=== PATIENT | male | born 1985 | race American Indian/Alaskan Native ===

== ENCOUNTER 2022-12-21 10:06 | Emergency (ER) | payer OTHER, SELFPAY ==
--- NOTE | 2022-12-21 10:13 | ED_ITS ---
HPI - Psych General Chief Complaint: Psychiatric Symptoms Stated Complaint: depressed Time Seen by Provider: 12/21/22 10:50 Source: patient Mode of arrival: ambulatory Limitations: no limitations History of Present Illness HPI Narrative: 37-year-old male presents with anxiety, depression, suicidal and homicidal red ation worsening of the past few days, patient reports polysubstance abuse has been using heroin and cocaine regularly however last use 2 days ago. Patient denies alcohol. Patient denies tobacco use disorder. Patient denies visual, auditory and tactile hallucinations. He tells me his plan for suicide is to cut himself. Also feeling homicidal however no particular plan. No medical complaints at this time. Reports med compliance Related Data Home Medications Medication Instructions Recorded Confirmed clonidine HCl 0.2 mg tablet 0.4 mg PO TID PRN Anxiety 12/21/22 12/21/22 nabumetone 750 mg tablet 750 mg PO BID 12/21/22 12/21/22 olanzapine 15 mg tablet 30 mg PO BEDTIME 12/21/22 12/21/22 trazodone 100 mg tablet 200 mg PO BEDTIME PRN Sleep 12/21/22 12/21/22 Allergies Allergy/AdvReac Type Severity Reaction Status Date / Time No Known Allergies Allergy Unverified 01/05/20 18:22 Review of Systems Review of Systems: Constitutional : No Weight loss, No Fever, No Chills, No Fatigue, No Malaise ENT/Mouth : No sore throat, No Rhinorrhea Eyes: No Eye Pain, No Swelling, No Redness Cardiovascular : No Chest Pain, No SOB, No Dyspnea on Exertion, No Orthopnea, No Edema, No Palpitations Respiratory : No Cough, No Sputum, No Wheezing Gastrointestinal : No Nausea, No Vomiting, No Diarrhea, No Constipation, No abdominal Pain, No Hematochezia, No Melena Genitourinary : No Dysuria, No Urinary Frequency, No Hematuria, Musculoskeletal : No joint pain, No Myalgias, No Joint Swelling Skin : No Skin Lesions, No rash Neuro : No Weakness, No Numbness, No Dizziness, No Headache Psych : + Anxiety/Panic, + Depression, + SI/HI All other systems reviewed and are negative Yes all other systems are reviewed and are negative [facility] Past Medical History Attestation statement: The following information was validated with the patient. Source: old records reviewed and nursing notes reviewed Social History Social History Alcohol intake: unknown Smoked in Last 30 Days: Yes Use of substances other than those prescribed or required for medical reasons: Unknown Advance Directives: No Advance Directives Information Provided: No Healthcare Proxy: No Guardian: No Physical Exam Vital Signs: Vital Signs: Last Vital Signs Temp 98.1 F 12/22/22 14:13 Pulse 56 12/22/22 14:13 Resp 18 12/22/22 14:13 BP 128/67 12/22/22 14:13 Pulse Ox 99 12/22/22 14:13 O2 Del Method Room Air 12/22/22 14:13 BMI result Body Mass Index 23.3 Vital signs stable Appearance: Alert.? Oriented X3.? No acute distress.? Head: Normocephalic, atraumatic, no step-offs or deformities Eyes: Pupils equal, round and reactive to light.? CVS: Normal heart rate and rhythm.? Pulses normal.? Respiratory: No respiratory distress.? Breath sounds normal.? Abdomen: Soft and nontender.? Skin: Skin warm and dry.? Normal skin color.? Normal skin turgor.? Extremities: No lower extremity edema.? No calf ttp. 5/5 strength to bilateral upper and lower extremities Neuro: Oriented X 3.? No motor deficit.? No sensory deficit. CN 2-12 intact Course Course Course Narrative: this is a rapid medical exam. deferred additional HPI, ROS, PE to primary provider. 37 y male w/ history of anxiety/depression here with complaints of anxiety/depression, SI/HI, has plan to cut his wrists Has a therapist/psychiatrist at [facility] Occasionally uses heroin/cocaine. Will obtain labs, SEGOVIA. Once medically cleared will need CARE team consult. VSS Reevaluation(s) Reevaluation #1: CBC appears to be within normal limits. Chemistry unremarkable no acute findings requiring intervention. UA clean without infection. Urine toxicology positive for opiates, fentanyl, cocaine, marijuana. Ethanol negative. Salicylates, acetaminophen negative. At this time patient to be placed into observation to allow more time to be evaluated by Behavioral Health Team. At time observation was started patient, cooperative no acute distress will continue to monitor. Time: 14:37 Reevaluation #2: vital signs stable, no event reported by the nurse overnight, bed searching is underway patient is a voluntary admission, continue with physician observation. Time: 07:23 Reevaluation #3: Patient wll go to [facility] Additional Reevaluation(s): 9899 Patient now requesting to leave not SI or HI. He no longer wants to go as inpatient psych. Dr. Mccabe aware according to care team Siri, Dr. Mccabe is recommending discharge if patient does not want to stay. I personally spoke to patient does says he will go to detox in [place] on [facility]. He states he just does not think an in-patient admission will help him. No si or hi at time of dc, patient denies hallucinations Medications Administered Generic Name Dose Route Start Last Admin Trade Name Freq PRN Reason Stop Dose Admin Clonidine HCl 0.4 mg 12/21/22 18:21 12/22/22 15:01 Clonidine Hcl 0.2 Mg Tablet PO 0.4 mg TID PRN Administration Anxiety Protocol Olanzapine 30 mg 12/21/22 21:00 12/21/22 20:31 Olanzapine 10 Mg Tablet PO 30 mg BEDTIME RUFINO Administration Trazodone HCl 200 mg 12/21/22 18:21 12/21/22 20:31 Trazodone Hcl 100 Mg Tablet PO 200 mg BEDTIME PRN Administration Sleep Discontinued Medications Generic Name Dose Route Start Last Admin Trade Name Freq PRN Reason Stop Dose Admin Diphenhydramine HCl 25 mg 12/21/22 22:58 12/21/22 23:08 Diphenhydramine Hcl 25 Mg Capsule PO 12/21/22 22:59 25 mg ONCE ONE Administration Melatonin 6 mg 12/22/22 01:02 12/22/22 01:06 Melatonin 3 Mg Tablet PO 12/22/22 01:03 6 mg ONCE ONE Administration Olanzapine 10 mg 12/21/22 11:20 12/21/22 11:26 Olanzapine 10 Mg Tablet PO 12/21/22 11:21 10 mg ONCE ONE Administration Medical Decision Making Medical Decision Making [facility] Narrative: 1437 37 year old male presents with depression, anxiety, suicidal and homicidal ideation x2 days Physical exam benign. Likely polysubstance abuse with suicidal and homicidal ideation. Unlikely metabolic derangements. Other differentials include bipolar disorder, schizop hrenia. Plan medical clearance evaluation by behavioral health team Differential Diagnosis Differential Diagnoses: The differential diagnosis associated with the presentation includes Likely polysubstance abuse with suicidal and homicidal ideation. Unlikely metabolic derangements. Other differentials include bipolar disorder, schizophrenia. Admission/Observation Consideration of admission/observation: Escalation of care including admission/observation considered possible Lab Data MDM Lab Attestation statement: I reviewed the patient's lab results. 12/21/22 11:16 12/21/22 11:16 Labs: Lab Results 12/21/22 12/21/22 12/21/22 Range/Units 11:16 11:16 11:16 WBC 5.0 (4.8-10.8) X10*3/uL RBC 4.81 (4.60-5.80) X10*6/uL Hgb 14.3 (14.0-18.0) g/dl Hct 42.2 (42.0-52.0) % MCV 87.7 (80.0-98.0) fL MCH 29.7 (27.0-33.0) pg MCHC 33.9 (31.0-36.0) g/dl RDW 13.0 (11.0-16.0) % Plt Count 183 (160-400) X10*3/uL MPV Not Reportable Immature Gran % (Auto) 0.2 (0.0-0.4) % Neut % (Auto) 69.3 (45-73) % Lymph % (Auto) 23.5 (20-40) % [place] % (Auto) 6.0 (2-11) % Eos % (Auto) 0.6 (0-4) % Baso % (Auto) 0.4 (0-2) % Lymph # (Auto) 1.2 (1.2-4.9) X10*3/uL [place] # (Auto) 0.3 (0.1-1.2) X10*3/uL Eos # (Auto) 0.0 (0.0-0.4) X10*3/uL Baso # (Auto) 0.0 (0.0-0.2) X10*3/uL Abs Immat Gran (auto) 0.01 (0.00-0.03) X10*3/uL Absolute Neuts (auto) 3.5 (2.0-8.3) x10*3/uL Absolute Nucleated RBC 0.000 (0.0-0.012) X10*3/uL Nucleated RBC % (auto) 0.0 (0.0-0.2) /100WBC Smear Tech's Comments VERIFIED Sodium 139 (135-145) mmol/L Potassium 3.9 (3.3-5.1) mmol/L Chloride 105 (96-108) mmol/L Carbon Dioxide 25 (22-29) mmol/L Anion Gap 13 (12-20) BUN 8 L (9-16) mg/dL Creatinine 0.80 (0.5-1.4) mg/dL Estim Creat Clear Calc 112.1 Estimated GFR > 60 Random Glucose 104 (60-115) mg/dL Calcium 9.8 (8.4-10.2) mg/dL Total Bilirubin 0.6 (0.0-1.0) mg/dL Direct Bilirubin 0.2 (0.0-0.5) mg/dL AST 39 H (5-37) U/L ALT 30 (0-40) U/L Alkaline Phosphatase 73 (39-117) U/L Total Protein 7.7 (6.5-8.0) g/dL Albumin 4.2 (3.5-5.0) g/dL Urine Color Urine Appearance Urine pH (5.0-9.0) Ur Specific Avis (1.005-1.025) Urine Protein (Neg-Trace) mg/dL Urine Glucose (UA) (Negative) mg/dL Urine Ketones (Negative) mg/dL Urine Blood (Negative) Urine Nitrite (Negative) Ur Leukocyte Esterase (Negative) Urine RBC (0-2) /HPF Urine WBC (0-5) /HPF Ur Squamous Epith Cells (0-2) /HPF Urine Bacteria (None Seen) Hyaline Casts (0-2) /LPF Salicylates < 5.0 L (15-30) mg/dL Urine Opiates Screen (Not Detect) Urine Fentanyl Screen (Not Detect) Acetaminophen < 17 (<30) mcg/mL Ur Barbiturates Screen (Not Detect) Ur Phencyclidine Scrn (Not Detect) Ur Amphetamines Screen (Not Detect) U Benzodiazepines Scrn (Not Detect) Urine Cocaine Screen (Not Detect) U Marijuana (THC) Screen (Not Detect) Ethyl Alcohol < 10 mg/dL COVID-19 (LESLIE) (Negative) COVID-19 Clin Com 12/21/22 12/21/22 12/22/22 Range/Units 11:16 11:16 13:18 WBC (4.8-10.8) X10*3/uL RBC (4.60-5.80) X10*6/uL Hgb (14.0-18.0) g/dl Hct (42.0-52.0) % MCV (80.0-98.0) fL MCH (27.0-33.0) pg MCHC (31.0-36.0) g/dl RDW (11.0-16.0) % Plt Count (160-400) X10*3/uL MPV Immature Gran % (Auto) (0.0-0.4) % Neut % (Auto) (45-73) % Lymph % (Auto) (20-40) % [place] % (Auto) (2-11) % Eos % (Auto) (0-4) % Baso % (Auto) (0-2) % Lymph # (Auto) (1.2-4.9) X10*3/uL [place] # (Auto) (0.1-1.2) X10*3/uL Eos # (Auto) (0.0-0.4) X10*3/uL Baso # (Auto) (0.0-0.2) X10*3/uL Abs Immat Gran (auto) (0.00-0.03) X10*3/uL Absolute Neuts (auto) (2.0-8.3) x10*3/uL Absolute Nucleated RBC (0.0-0.012) X10*3/uL Nucleated RBC % (auto) (0.0-0.2) /100WBC Smear Tech's Comments Sodium (135-145) mmol/L Potassium (3.3-5.1) mmol/L Chloride (96-108) mmol/L Carbon Dioxide (22-29) mmol/L Anion Gap (12-20) BUN (9-16) mg/dL Creatinine (0.5-1.4) mg/dL Estim Creat Clear Calc Estimated GFR Random Glucose (60-115) mg/dL Calcium (8.4-10.2) mg/dL Total Bilirubin (0.0-1.0) mg/dL Direct Bilirubin (0.0-0.5) mg/dL AST (5-37) U/L ALT (0-40) U/L Alkaline Phosphatase (39-117) U/L Total Protein (6.5-8.0) g/dL Albumin (3.5-5.0) g/dL Urine Color Dark Yellow Urine Appearance Cloudy Urine pH 6.0 (5.0-9.0) Ur Specific Avis 1.025 (1.005-1.025) Urine Protein Trace (Neg-Trace) mg/dL Urine Glucose (UA) Negative (Negative) mg/dL Urine Ketones 15 (Negative) mg/dL Urine Blood Negative (Negative) Urine Nitrite Negative (Negative) Ur Leukocyte Esterase Trace H (Negative) Urine RBC 0-2 (0-2) /HPF Urine WBC 0-5 (0-5) /HPF Ur Squamous Epith Cells 0-2 (0-2) /HPF Urine Bacteria None Seen (None Seen) Hyaline Casts 3-5 (0-2) /LPF Salicylates (15-30) mg/dL Urine Opiates Screen POSITIVE H (Not Detect) Urine Fentanyl Screen POSITIVE H (Not Detect) Acetaminophen (<30) mcg/mL Ur Barbiturates Screen Not Detected (Not Detect) Ur Phencyclidine Scrn Not Detected (Not Detect) Ur Amphetamines Screen Not Detected (Not Detect) U Benzodiazepines Scrn Not Detected (Not Detect) Urine Cocaine Screen POSITIVE H (Not Detect) U Marijuana (THC) Screen POSITIVE H (Not Detect) Ethyl Alcohol mg/dL COVID-19 (LESLIE) Negative (Negative) COVID-19 Clin Com See Note Core Measures AMI core measures followed: Yes Measure exclusions: not indicated Critical Care Time Critical Care Time Critical Care Time: No Discharge Plan Discharge Clinical Impression: Depression, Suicidal ideation Patient Disposition: Home, Self-Care Instructions: Depression (ED), Help Prevent Suicide (ED), Suicide Prevention (E D) Additional Instructions: Take your medications as prescribed. If you were prescribed antibiotics today, it is important that you take your medication to their entirety, do not skip any doses, do not finish them early. Follow-up with your primary care provider this week. Return to the emergency department with new or worsening symptoms. Such as fevers, chills, chest pain, shortness of breath, nausea, vomiting, dizziness, headache, vision changes, lethargy In case of emergency call 911 Prescriptions: No Action nabumetone 750 mg tablet 750 mg PO BID clonidine HCl 0.2 mg tablet 0.4 mg PO TID PRN (Reason: Anxiety) Rx Instructions: Take 2 tablets PO BID PRN trazodone 100 mg tablet 200 mg PO BEDTIME PRN (Reason: Sleep) olanzapine 15 mg tablet 30 mg PO BEDTIME Referrals: Physician,None [Primary Care Provider] - 2 days Interventions: [place]-Suicide Risk Severity Scale Last Done: 12/22/22 12:45
[2022-12-21 10:14] VITALS: BP 111/68; PULSE 74; RESP 16; TEMP 36.6; O2SAT 97; BMI 23.3
[2022-12-21 11:26] LABS: Basophils Percent Auto 0.4 % (0-2); Eosinophils Percent Auto 0.6 % (0-4); Hematocrit 42.2 % (42.0-52.0); Hemoglobin 14.3 g/dl (14.0-18.0); Imm Gran Abs Auto 0.01 X10*3/uL (0.00-0.03); Imm Gran Pct Auto 0.2 % (0.0-0.4); Lymphocytes Absolute Auto 1.2 X10*3/uL (1.2-4.9); Lymphocytes Percent Auto 23.5 % (20-40); MANUAL DIFF FLAG SCAN; Mean Corpuscular HGB Conc 33.9 g/dl (31.0-36.0); Mean Corpuscular Hemoglobin 29.7 pg (27.0-33.0); Mean Corpuscular Volume 87.7 fL (80.0-98.0); Monocytes Absolute Auto 0.3 X10*3/uL (0.1-1.2); Neutrophils Absolute Auto 3.5 x10*3/uL (2.0-8.3); Neutrophils Percent Auto 69.3 % (45-73); PLT CLUMP 1; Red Blood Count 4.81 X10*6/uL (4.60-5.80); SCAN SMEAR FLAG 1
[2022-12-21] MEDS: OLANZapine 10 MG TABLET PO (11:26)
[2022-12-21 11:27] LABS: Appearance Urine Cloudy; Color Urine Dark Yellow; Glucose Urine UA Negative (Negative); Leukocyte Esterase Urine Trace (Negative); Nitrite Urine Negative (Negative); Specific Gravity - Urine 1.025 (1.005-1.025); UMIC TRIGGER UACC YES; Urine Blood Negative (Negative); Urine Ketones 15 mg/dL (Negative); Urine Protein Trace mg/dL (Neg-Trace)
[2022-12-21 11:29] LABS: Bacteria Urine None Seen (None Seen); RBC Urine 0-2 /HPF (0-2); Squamous Epithelial Cell Urine 0-2 /HPF (0-2); WBC Urine 0-5 /HPF (0-5)
[2022-12-21 11:38] LABS: Amphetamine Screen Urine Not Detected (Not Detect); Barbiturates, Urine Not Detected (Not Detect); Benzodiazepines Screen Urine Not Detected (Not Detect); Cannabinoid Screen Urine POSITIVE (Not Detect); Cocaine Screen Urine POSITIVE (Not Detect); Fentanyl, urine POSITIVE (Not Detect); Opiate Screen Urine POSITIVE (Not Detect); Phencyclidine Screen Urine Not Detected (Not Detect)
[2022-12-21 11:42] LABS: Acetaminophen LAB < 17 mcg/mL (<30); Alanine Aminotransferase 30 U/L (0-40); Albumin Level 4.2 g/dL (3.5-5.0); Alkaline Phosphatase 73 U/L (39-117); Anion Gap 13 (12-20); Aspartate Amino Transferase 39 U/L (5-37); Bilirubin Direct 0.2 mg/dL (0.0-0.5); Bilirubin Total 0.6 mg/dL (0.0-1.0); Blood Urea Nitrogen 8 mg/dL (9-16); Calcium 9.8 mg/dL (8.4-10.2); Carbon Dioxide 25 mmol/L (22-29); Chloride 105 mmol/L (96-108); Creatinine Clr Calc Pharmacy 112.1; Estimated Glomerular Filt Rate > 60; Ethanol < 10 mg/dL; Glucose Random 104 mg/dL (60-115); Platelet Count 183 X10*3/uL (160-400); Potassium 3.9 mmol/L (3.3-5.1); Salicylate < 5.0 mg/dL (15-30); Sodium 139 mmol/L (135-145); Total Protein 7.7 g/dL (6.5-8.0)
[2022-12-21 11:43] LABS: SLIDE REVIEW VERIFIED
[2022-12-21 14:17] VITALS: RESP 18
--- NOTE | 2022-12-21 16:08 | PC.NURSE ---
Sebastien self presented to the emergency dept reporting SI/HI and lots of thoughts . [employer] utilized as Sebastien is [place] speaking only. Sebastien states he can be safe in the hospital and denies any plan or intent but does report he is having a lot of thoughts, bad ones . Sebastien reports he has been sporadic with his medication which includes 30mg Olanzapine at HS. Appetite is good and since arriving Sebastien has been resting in his room. No behavioral concerns noted.
[2022-12-21] MEDS: cloNIDine HCL 0.2 MG TABLET 0.4 MG PO (18:32)
[2022-12-21 18:37] VITALS: PULSE 68; RESP 18
[2022-12-21] MEDS: traZODone HCL 100 MG TABLET 200 MG PO (20:31)
[2022-12-21] MEDS: OLANZapine 10 MG TABLET 30 MG PO (20:31)
[2022-12-21 20:40] VITALS: BP 115/62; PULSE 68; RESP 16; O2SAT 99
[2022-12-21 21:43] VITALS: RESP 18
--- NOTE | 2022-12-21 22:57 | PC.NURSE ---
LUIZA carlson gave Verbal order for 25mg bendryl PO to assist with sleeping.
[2022-12-21] MEDS: diphenhydrAMINE HCL 25 MG CAPSULE PO (23:08)
--- NOTE | 2022-12-22 | ECG_ITS ---
Test Reason : COCAINE USE Blood Pressure : / mmHG Vent. Rate : 056 BPM Atrial Rate : 056 BPM P-R Int : 128 ms QRS Dur : 084 ms QT Int : 418 ms P-R-T Axes : 044 022 032 degrees QTc Int : 403 ms Sinus bradycardia Otherwise normal ECG When compared with ECG of 03-JAN-2012 00:13, Vent. rate has decreased BY 59 BPM Nonspecific T wave abnormality no longer evident in Anterolateral leads Referred By: Jennie Key Electronically Signed By:CLAUDINE CONTRERAS
--- NOTE | 2022-12-22 01:03 | PC.NURSE ---
Pt reporting being unable to sleep. Dr. Calderon consulted. Plan at this time is to try melatonin.
[2022-12-22] MEDS: Melatonin 3 MG TABLET 6 MG PO (01:06)
--- NOTE | 2022-12-22 06:53 | PC.NURSE ---
resumed care of patient, at this time pt is resting comfortably. Safety measures in place, Q15 min checks maintained. awaiting possible bed placement today
[2022-12-22 13:43] LABS: COVID-19 Test Negative (Negative); IDNOW Serial# 08D9AD1C
[2022-12-22 14:13] VITALS: BP 128/67; PULSE 56; RESP 18; TEMP 36.7; O2SAT 99
[2022-12-22] MEDS: cloNIDine HCL 0.2 MG TABLET 0.4 MG PO (15:01)
--- NOTE | 2022-12-22 15:02 | PC.NURSE ---
patient is requesting to leave at this time. This RN spoke with the patient via the travel registered nurse oncology. He stated that he would like to go to a senior care instead of go inpatient. CARE team aware
--- NOTE | 2022-12-22 15:50 | PC.NURSE ---
patient verbalizes he has no thoughts of SI or HI, feels safe going home and reports that he is going to go to a detox on his own
== END 2022-12-22 15:54 | disposition home or self-care (01) ==
PROVIDERS: Nurse Practitioner Family; Physician Assistant; Emergency Provider Emergency Medicine
DX: F33.1 Major depressive disorder, recurrent, moderate (principal); R45.851 Suicidal ideations; R45.850 Homicidal ideations; R00.1 Bradycardia, unspecified; F41.1 Generalized anxiety disorder; F43.0 Acute stress reaction; F11.10 Opioid abuse, uncomplicated; F14.10 Cocaine abuse, uncomplicated; Z20.822 Contact with and (suspected) exposure to COVID-19; Z20.828 Contact with and (suspected) exposure to other viral communicable diseases; Z79.899 Other long term (current) drug therapy
CPT/HCPCS: 36415; 80048; 80076; 80143; 80179; 80307; 81001; 85025; 87635; 93005; 99285; S9485

== ENCOUNTER 2023-01-02 15:22 | Emergency (ER) | payer OTHER, SELFPAY ==
[2023-01-02 16:07] VITALS: BP 127/91; PULSE 78; RESP 14; TEMP 36.9; O2SAT 98; BMI 27.5
--- NOTE | 2023-01-02 16:10 | ED.GENADULT ---
HPI - General Adult General Chief complaint: Skin/Abscess/Foreign Body Stated complaint: Rash on L arm Time Seen by Provider: 01/02/23 21:34 Source: patient Mode of arrival: ambulatory Limitations: no limitations History of Present Illness HPI narrative: Patient came with a rash on the left forearm for last few days patient is homeless sleeps on the street rash is itchy with clear watery discharge Related Data Home Medications Medication Instructions Recorded Confirmed clonidine HCl 0.2 mg tablet 0.4 mg PO TID PRN Anxiety 12/21/22 12/21/22 nabumetone 750 mg tablet 750 mg PO BID 12/21/22 12/21/22 olanzapine 15 mg tablet 30 mg PO BEDTIME 12/21/22 12/21/22 trazodone 100 mg tablet 200 mg PO BEDTIME PRN Sleep 12/21/22 12/21/22 Previous Rx's Medication Instructions Recorded diphenhydramine HCl 25 mg capsule 50 mg (2 x 25 mg) PO TID PRN 01/02/23 (Benadryl) allergic reaction #30 caps prednisone 10 mg tablets in a dose 10 mg PO DIRECTED #48 ea 01/02/23 pack Allergies Allergy/AdvReac Type Severity Reaction Status Date / Time No Known Allergies Allergy Unverified 01/05/20 18:22 Review of Systems Review of Systems: Yes all other systems are reviewed and are negative [facility] Social History Social History Alcohol intake: unknown Advance Directives: No Advance Directives Information Provided: No Physical Exam ED Vital Signs: Vital Signs - 24 hr 01/02/23 16:07 01/02/23 20:09 Temperature 98.5 F 98.3 F Pulse Rate 78 76 Respiratory Rate 14 17 Blood Pressure 127/91 H 128/88 Pulse Oximetry 98 Oxygen Delivery Method Room Air Room Air BMI result Body Mass Index 27.5 Appearance: Alert. Oriented X3. No acute distress. CVS: Normal heart rate and rhythm. Pulses normal. Respiratory: No respiratory distress. Equal air entry bilateral, no wheezing/rales/rhonchi Abdomen: Soft and nontender. Bowel sounds are present, no mass palpable, no CVA tenderness Skin: Skin warm and dry. Normal skin color. Normal skin turgor. Extremities: No lower extremity edema. No calf tenderness dermatitis rash left forearm and left leg Neuro: Oriented X 3. No motor deficit. Course Course Course Narrative: This is a rapid medical exam: Additional HPI, ROS, PE not included below will be deferred to primary provider. Patient is a 37-year-old male presenting to the emergency department with pruritic rash to left forearm, AC, and distal upper arm. States he is currently unhoused and is living outside in a tent. States that he uses IV drugs, but typically injects in right arm. Occasionally injects in left wrist. Unsure if he has had fevers. Plan: labs including blood cultures Medications Administered Discontinued Medications Generic Name Dose Route Start Last Admin Trade Name Freq PRN Reason Stop Dose Admin Diphenhydramine HCl 50 mg 01/02/23 22:00 01/02/23 22:35 Diphenhydramine Hcl 25 Mg Capsule PO 01/02/23 22:01 50 mg ONCE ONE Administration Prednisone 40 mg 01/02/23 22:00 01/02/23 22:35 Prednisone 20 Mg Tablet PO 01/02/23 22:01 40 mg ONCE ONE Administration Medical Decision Making Lab Data 01/02/23 19:13 01/02/23 19:13 Labs: Lab Results 01/02/23 01/02/23 Range/Units 19:13 19:14 WBC 9.5 (4.8-10.8) X10*3/uL RBC 5.38 (4.60-5.80) X10*6/uL Hgb 16.3 (14.0-18.0) g/dl Hct 46.4 (42.0-52.0) % MCV 86.2 (80.0-98.0) fL MCH 30.3 (27.0-33.0) pg MCHC 35.1 (31.0-36.0) g/dl RDW 13.0 (11.0-16.0) % Plt Count 262 D (160-400) X10*3/uL MPV 10.6 (9.4-12.4) fL Immature Gran % (Auto) 0.3 (0.0-0.4) % Neut % (Auto) 49.3 (45-73) % Lymph % (Auto) 34.9 (20-40) % [place] % (Auto) 8.4 (2-11) % Eos % (Auto) 6.2 H (0-4) % Baso % (Auto) 0.9 (0-2) % Lymph # (Auto) 3.3 (1.2-4.9) X10*3/uL [place] # (Auto) 0.8 (0.1-1.2) X10*3/uL Eos # (Auto) 0.6 H (0.0-0.4) X10*3/uL Baso # (Auto) 0.1 (0.0-0.2) X10*3/uL Abs Immat Gran (auto) 0.03 (0.00-0.03) X10*3/uL Absolute Neuts (auto) 4.7 (2.0-8.3) x10*3/uL Absolute Nucleated RBC 0.000 (0.0-0.012) X10*3/uL Nucleated RBC % (auto) 0.0 (0.0-0.2) /100WBC Sodium 137 (135-145) mmol/L Potassium 3.1 L D (3.3-5.1) mmol/L Chloride 96 (96-108) mmol/L Carbon Dioxide 28 (22-29) mmol/L Anion Gap 16 (12-20) BUN 12 (9-16) mg/dL Creatinine 0.90 (0.5-1.4) mg/dL Estim Creat Clear Calc 112.1 Estimated GFR > 60 Random Glucose 101 (60-115) mg/dL Lactic Acid 2.0 (0.5-2.0) mmol/L Calcium 10.3 H (8.4-10.2) mg/dL Discharge Plan Discharge Clinical Impression: Contact dermatitis Patient Disposition: Home, Self-Care Instructions: Contact Dermatitis (ED) Additional Instructions: Take medication as prescribed Follow with PCP as needed Prescriptions: New prednisone 10 mg tablets,dose pack 10 mg PO DIRECTED Qty: 48 0RF Rx Instructions: see taper instructions diphenhydramine HCl [Benadryl] 25 mg capsule 50 mg PO TID PRN (Reason: allergic reaction) Qty: 30 0RF No Action nabumetone 750 mg tablet 750 mg PO BID clonidine HCl 0.2 mg tablet 0.4 mg PO TID PRN (Reason: Anxiety) Rx Instructions: Take 2 tablets PO BID PRN trazodone 100 mg tablet 200 mg PO BEDTIME PRN (Reason: Sleep) olanzapine 15 mg tablet 30 mg PO BEDTIME Interventions: ED Discharge Assessment Last Done: 01/02/23 22:39 Discharge Date/Time: 01/02/23 22:40
[2023-01-02 19:20] LABS: Basophils Absolute Auto 0.1 X10*3/uL (0.0-0.2); Basophils Percent Auto 0.9 % (0-2); Eosinophils Absolute Auto 0.6 X10*3/uL (0.0-0.4); Eosinophils Percent Auto 6.2 % (0-4); Hematocrit 46.4 % (42.0-52.0); Hemoglobin 16.3 g/dl (14.0-18.0); Imm Gran Abs Auto 0.03 X10*3/uL (0.00-0.03); Imm Gran Pct Auto 0.3 % (0.0-0.4); Lymphocytes Absolute Auto 3.3 X10*3/uL (1.2-4.9); Lymphocytes Percent Auto 34.9 % (20-40); MANUAL DIFF FLAG NO; Mean Corpuscular HGB Conc 35.1 g/dl (31.0-36.0); Mean Corpuscular Hemoglobin 30.3 pg (27.0-33.0); Mean Corpuscular Volume 86.2 fL (80.0-98.0); Mean Platelet Volume 10.6 fL (9.4-12.4); Monocytes Absolute Auto 0.8 X10*3/uL (0.1-1.2); Monocytes Percent Auto 8.4 % (2-11); Neutrophils Absolute Auto 4.7 x10*3/uL (2.0-8.3); Neutrophils Percent Auto 49.3 % (45-73); Platelet Count 262 X10*3/uL (160-400); Red Blood Count 5.38 X10*6/uL (4.60-5.80); White Blood Count 9.5 X10*3/uL (4.8-10.8)
[2023-01-02 19:38] LABS: Anion Gap 16 (12-20); Blood Urea Nitrogen 12 mg/dL (9-16); Calcium 10.3 mg/dL (8.4-10.2); Carbon Dioxide 28 mmol/L (22-29); Chloride 96 mmol/L (96-108); Creatinine Clr Calc Pharmacy 112.1; Estimated Glomerular Filt Rate > 60; Glucose Random 101 mg/dL (60-115); Potassium 3.1 mmol/L (3.3-5.1); Sodium 137 mmol/L (135-145)
[2023-01-02 20:09] VITALS: BP 128/88; PULSE 76; RESP 17; TEMP 36.8
[2023-01-02] MEDS: predniSONE 20 MG TABLET 40 MG PO (22:35)
[2023-01-02] MEDS: diphenhydrAMINE HCL 25 MG CAPSULE 50 MG PO (22:35)
--- NOTE | 2023-01-02 22:39 | PC.NURSE ---
pt medicated per MAR.
== END 2023-01-02 22:40 | disposition home or self-care (01) ==
PROVIDERS: Registered Nurse Emergency; Emergency Provider Internal Medicine
DX: L25.9 Unspecified contact dermatitis, unspecified cause (principal); R21 Rash and other nonspecific skin eruption; Z79.899 Other long term (current) drug therapy
CPT/HCPCS: 36415; 80048; 83605; 85025; 87040; 99282; 99283

== ENCOUNTER 2023-01-03 13:47 | Emergency (ER) | payer OTHER, SELFPAY ==
[2023-01-03 14:25] VITALS: BP 148/103; PULSE 75; RESP 16; TEMP 37.3; O2SAT 98; BMI 28.5
--- NOTE | 2023-01-03 14:32 | ED.SKABFB ---
HPI - Skin/Abscess/Foreign Bdy General Chief complaint: Skin/Abscess/Foreign Body Stated complaint: rash Time Seen by Provider: 01/03/23 15:54 Source: patient and deputy chief executive Mode of arrival: ambulatory Limitations: language barrier History of Present Illness HPI narrative: Patient is a 37-year-old Citizen Of [place]-speaking male presenting to the emergency department with rash to left arm which has spread to his face and lower legs. States he was initially scratching the rash but discontinued this after he was told to stop scratching it in the ED yesterday. Patient was seen in this emergency department yesterday for same complaint and discharged home with prescriptions for prednisone and Benadryl. 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 He is currently on house and living outside in a tent. He denies fevers but does report body aches. Denies cough or shortness of breath, denies chest pain. MD complaint: rash Onset (ago): day(s) Location: face, LUE, LLE and RLE Severity: mild Quality: pruritic Context: IVDA and other (Living outdoors) Associated symptoms: myalgias Treatments prior to arrival: corticosteroid (Taken in the ED yesterday) Related Data Home Medications Medication Instructions Recorded Confirmed clonidine HCl 0.2 mg tablet 0.4 mg PO TID PRN Anxiety 12/21/22 12/21/22 nabumetone 750 mg tablet 750 mg PO BID 12/21/22 12/21/22 olanzapine 15 mg tablet 30 mg PO BEDTIME 12/21/22 12/21/22 trazodone 100 mg tablet 200 mg PO BEDTIME PRN Sleep 12/21/22 12/21/22 Previous Rx's Medication Instructions Recorded diphenhydramine HCl 25 mg capsule 50 mg (2 x 25 mg) PO TID PRN 01/02/23 (Benadryl) allergic reaction #30 caps prednisone 10 mg tablets in a dose 10 mg PO DIRECTED #48 ea 01/02/23 pack hydrocortisone 1 % topical cream 1 appl topical TID PRN itching 01/03/23 #28.4 grams nirmatrelvir 300 mg (150 mg See Rx Instructions PO .COMPLEX 01/03/23 x2)-ritonavir 100 mg tablet,dose #30 ea pack (Paxlovid) Allergies Allergy/AdvReac Type Severity Reaction Status Date / Time No Known Allergies Allergy Unverified 01/05/20 18:22 Review of Systems Review of Systems: As per HPI Yes all other systems are reviewed and are negative Constitutional: Constitutional: Reports as per HPI [facility] Social History Social History Alcohol intake: unknown Advance Directives: No Physical Exam Vital Signs: Vital Signs: Last Vital Signs Temp 98.9 F 01/03/23 15:08 Pulse 68 01/03/23 15:08 Resp 18 01/03/23 15:08 BP 146/94 H 01/03/23 15:08 Pulse Ox 96 01/03/23 15:08 O2 Del Method Room Air 01/03/23 15:08 BMI result Body Mass Index 28.5 Vital signs have been reviewed and appear to be correct. Blood pressure normal. Heart rate normal. Respiratory rate normal. Temperature normal. Oxygen saturation normal. Const: General: cooperative, healthy appearing and no acute distress Orientation/consciousness: oriented to person, oriented to place, oriented to time and patient oriented x3 Limitations: no limitations HEENT: Head: Yes normocephalic and Yes atraumatic Ears: external ears normal General nose exam: Normal external nose present Face and sinus: Yes face symmetric Mouth: oropharynx normal and moist mucous membranes Throat: Yes uvula midline Eyes: Pupils: Equal, round and reactive pupils present Neck: Neck: Yes normal visual inspection and Yes supple Resp: Effort & Inspection: normal respiratory effort and able to speak in complete sentences Auscultation: clear to auscultation bilaterally Cardio: Rate: regular rate Rhythm: regular rhythm Heart sounds: S1 normal heart sound present and S2 normal heart sound present GI: Palpation (GI): Soft to palpation and nontender Auscultation: normoactive bowel sounds : General: Yes no CVA tenderness Back/Spine/Pelvis: Back: no CVA tenderness Skin: General skin exam: elasticity normal and turgor normal Rashes: rashes noted (fine erythematous maulopapular rash to left anterior forearm ) maculopapular rash left anterior forearm Neuro: General: oriented to person, oriented to place, oriented to time, patient oriented x3, moves all extremities, no focal motor deficits and CN's II-XI intact bilaterally Cranial nerves: Yes Equal, round and reactive pupils present Cognition (Neuro): normal cognition Extrem: General: Yes full ROM, Yes no pedal edema and Yes no calf tenderness Psych: Mental Status: mental status grossly normal Affect: normal affect Thought process: Normal thought process present Course Course Course Narrative: This is an RME: Additional HPI, ROS, PE not included below will be deferred to primary provider. This is [id number] male presenting to the emergency department with pruritic rash to left forearm, AC, and distal upper arm, now spreading to his lower extremities and face. States he is currently unhoused and is living outside in a tent. States that he uses IV drugs, he states that he injects in his left wrist, never in the left AC Unsure if he has had fevers, but admits to having body aches. he was seen yesterday for this rash and was given prednisone which she has been taking but states that the rash is only spreading. Plan: labs Medical Decision Making Medical Decision Making [facility] Narrative: Patient is a 37-year-old Citizen Of [place]-speaking male presenting to the emergency department with rash to left arm which has spread to his face and lower legs. On exam patient is awake, A+Ox3, VS WNL, afebrile, normal neurological exam without focal deficits, fine erythematous maculopapular rash to left anterior forearm and distal upper arm, scattered erythematous papules to face and bilateral lower extremities. Given reported symptoms and physical exam findings, initial differential includes contact dermatitis, viral exanthem, cellulitis. Do not suspect DRESS, TTP, DIC, no bullae or pain out of proportion concerning for necrotizing fasciitis, do not suspect SSSS, TEN, SJS, TSS. Covid swab resulted positive today, patient updated on results. Discussed treatment with Paxlovid which patient is agreeable to. Labs notable for mild leukocytosis and mildly elevated LFTs likely related to Covid infection. Discussed with patient the importance of obtaining his prescribed medications, will also prescribe hydrocortisone cream at patient request as well as Paxlovid. Return precautions discussed at bedside. All questions answered. Patient verbalized understanding of and agreement with plan. Differential Diagnosis Differential Diagnoses: The differential diagnosis associated with the presentation includes As per [facility] Lab Data [facility] Lab Attestation statement: I reviewed the patient's lab results. As per [facility]. 01/03/23 15:19 09/16/23 15:19 Labs: Lab Results 01/03/23 01/03/23 Range/Units 14:39 15:19 WBC 11.6 H (4.8-10.8) X10*3/uL RBC 5.31 (4.60-5.80) X10*6/uL Hgb 15.9 (14.0-18.0) g/dl Hct 45.6 (42.0-52.0) % MCV 85.9 (80.0-98.0) fL MCH 29.9 (27.0-33.0) pg MCHC 34.9 (31.0-36.0) g/dl RDW 12.7 (11.0-16.0) % Plt Count 260 (160-400) X10*3/uL MPV 10.3 (9.4-12.4) fL Immature Gran % (Auto) 0.3 (0.0-0.4) % Neut % (Auto) 76.6 H (45-73) % Lymph % (Auto) 12.1 L (20-40) % Hudson % (Auto) 7.7 (2-11) % Eos % (Auto) 2.8 (0-4) % Baso % (Auto) 0.5 (0-2) % Lymph # (Auto) 1.4 (1.2-4.9) X10*3/uL Hudson # (Auto) 0.9 (0.1-1.2) X10*3/uL Eos # (Auto) 0.3 (0.0-0.4) X10*3/uL Baso # (Auto) 0.1 (0.0-0.2) X10*3/uL Abs Immat Gran (auto) 0.04 H (0.00-0.03) X10*3/uL Absolute Neuts (auto) 8.9 H (2.0-8.3) x10*3/uL Absolute Nucleated RBC 0.000 (0.0-0.012) X10*3/uL Nucleated RBC % (auto) 0.0 (0.0-0.2) /100WBC Sodium 137 (135-145) mmol/L Potassium 3.3 (3.3-5.1) mmol/L Chloride 97 (96-108) mmol/L Carbon Dioxide 29 (22-29) mmol/L Anion Gap 14 (12-20) BUN 11 (9-16) mg/dL Creatinine 0.87 (0.5-1.4) mg/dL Estim Creat Clear Calc 113.8 Estimated GFR > 60 Random Glucose 100 (60-115) mg/dL Calcium 10.7 H (8.4-10.2) mg/dL Total Bilirubin 0.5 (0.0-1.0) mg/dL Direct Bilirubin 0.3 (0.0-0.5) mg/dL AST 48 H (5-37) U/L ALT 74 H (0-40) U/L Alkaline Phosphatase 65 (39-117) U/L Total Protein 8.2 H (6.5-8.0) g/dL Albumin 4.4 (3.5-5.0) g/dL Influenza Type A (PCR) NEGATIVE (Negative) Influenza Type B (PCR) NEGATIVE (Negative) RSV RNA Qual (PCR) NEGATIVE (Negative) SARS-CoV-2 RNA (RT-PCR) POSITIVE A (Negative) External Record Review External record reviewed: Inpatient record, Office record and Outpatient record Prescription Management I considered prescription management with: Antiviral and Other Discharge Plan Discharge Clinical Impression: COVID-19 Contact dermatitis Qualifiers: Contact dermatitis type: unspecified Contact dermatitis trigger: unspecified trigger Qualified Code(s): L25.9 - Unspecified contact dermatitis, unspecified cause Patient Disposition: Home, Self-Care Instructions: Contact Dermatitis (DC), COVID-19 (Coronavirus Disease 2019) (ED) Additional Instructions: Hoy lo evaluaron en el departamento de emergencias por un sarpullido y edward corporales. Wilson prueba de COVID result? positiva. Debe continuar aislado aleah otros 4 d?as. Debe continuar usando la mascarilla aleah 5 d?as despu?s de eso. Le ofrecieron un tratamiento con Paxlovid que usted solicit? y se envi? la receta a wilson farmacia. Tambi?n le recetan ming crema t?pica para la picaz?n. Si cambia de opini?n dentro de las pr?ximas 48 horas, comun?quese con wilson proveedor de atenci?n primaria para analizar gauri tratamiento. Regrese al departamento de emergencias si la dificultad para respirar empeora, dolor en el pecho, fiebre que no mejora con Tylenol o ibuprofeno, v?mitos persistentes o cualquier otro s?ntoma preocupante. Debe realizar un seguimiento con wilson proveedor de atenci?n primaria. Prescriptions: New hydrocortisone 1 % cream 1 appl topical TID PRN (Reason: itching) Qty: 28.4 0RF Paxlovid 300 mg (150 mg x 2)-100 mg tablets,dose pack See Rx Instructions .ROUTE .COMPLEX Qty: 30 0RF Rx Instructions: take TWO 150 mg tablets of nirmatrelvir with ONE 100 mg tablet of ritonavir twice daily for 5 days No Action nabumetone 750 mg tablet 750 mg PO BID clonidine HCl 0.2 mg tablet 0.4 mg PO TID PRN (Reason: Anxiety) Rx Instructions: Take 2 tablets PO BID PRN trazodone 100 mg tablet 200 mg PO BEDTIME PRN (Reason: Sleep) olanzapine 15 mg tablet 30 mg PO BEDTIME prednisone 10 mg tablets,dose pack 10 mg PO DIRECTED Qty: 48 0RF Rx Instructions: see taper instructions diphenhydramine HCl [Benadryl] 25 mg capsule 50 mg PO TID PRN (Reason: allergic reaction) Qty: 30 0RF Print Language: Citizen Of [place]
[2023-01-03 15:08] VITALS: BP 146/94; PULSE 68; RESP 18; TEMP 37.2; O2SAT 96
[2023-01-03 15:23] LABS: MANUAL DIFF FLAG NO
[2023-01-03 15:24] LABS: Basophils Absolute Auto 0.1 X10*3/uL (0.0-0.2); Basophils Percent Auto 0.5 % (0-2); Eosinophils Absolute Auto 0.3 X10*3/uL (0.0-0.4); Eosinophils Percent Auto 2.8 % (0-4); Hematocrit 45.6 % (42.0-52.0); Hemoglobin 15.9 g/dl (14.0-18.0); Imm Gran Abs Auto 0.04 X10*3/uL (0.00-0.03); Imm Gran Pct Auto 0.3 % (0.0-0.4); Lymphocytes Absolute Auto 1.4 X10*3/uL (1.2-4.9); Lymphocytes Percent Auto 12.1 % (20-40); Mean Corpuscular HGB Conc 34.9 g/dl (31.0-36.0); Mean Corpuscular Hemoglobin 29.9 pg (27.0-33.0); Mean Corpuscular Volume 85.9 fL (80.0-98.0); Mean Platelet Volume 10.3 fL (9.4-12.4); Monocytes Absolute Auto 0.9 X10*3/uL (0.1-1.2); Monocytes Percent Auto 7.7 % (2-11); Neutrophils Absolute Auto 8.9 x10*3/uL (2.0-8.3); Neutrophils Percent Auto 76.6 % (45-73); Platelet Count 260 X10*3/uL (160-400); Red Blood Count 5.31 X10*6/uL (4.60-5.80); Red Cell Distribution Width 12.7 % (11.0-16.0); White Blood Count 11.6 X10*3/uL (4.8-10.8)
[2023-01-03 15:38] LABS: Influenza A PCR NEGATIVE (Negative); Influenza B PCR NEGATIVE (Negative); Resp Syncy Virus RNA Qual PCR NEGATIVE (Negative); SARS COV2 PCR INHOUSE POSITIVE (Negative)
[2023-01-03 15:58] LABS: Alanine Aminotransferase 74 U/L (0-40); Albumin Level 4.4 g/dL (3.5-5.0); Alkaline Phosphatase 65 U/L (39-117); Anion Gap 14 (12-20); Aspartate Amino Transferase 48 U/L (5-37); Bilirubin Direct 0.3 mg/dL (0.0-0.5); Bilirubin Total 0.5 mg/dL (0.0-1.0); Blood Urea Nitrogen 11 mg/dL (9-16); Calcium 10.7 mg/dL (8.4-10.2); Carbon Dioxide 29 mmol/L (22-29); Chloride 97 mmol/L (96-108); Creatinine Clr Calc Pharmacy 113.8; Estimated Glomerular Filt Rate > 60; Glucose Random 100 mg/dL (60-115); Potassium 3.3 mmol/L (3.3-5.1); Sodium 137 mmol/L (135-145); Total Protein 8.2 g/dL (6.5-8.0)
[2023-01-03] MEDS: Loratadine 10 MG TABLET PO (16:31)
== END 2023-01-03 16:39 | disposition home or self-care (01) ==
PROVIDERS: Physician Assistant Medical; Emergency Provider Emergency Medicine Emergency Medical Services
DX: U07.1 COVID-19 (principal); L25.9 Unspecified contact dermatitis, unspecified cause
CPT/HCPCS: 0241U; 80048; 80076; 85025; 99283; 99284

== ENCOUNTER 2023-01-05 11:04 | Emergency (ER) | payer OTHER, SELFPAY ==
[2023-01-05 11:15] VITALS: BP 132/91; PULSE 92; RESP 18; TEMP 36.1; O2SAT 95; BMI 26.6
--- NOTE | 2023-01-05 11:17 | ED_ITS ---
HPI - Skin/Abscess/Foreign Bdy General Chief complaint: Skin/Abscess/Foreign Body Stated complaint: rash r arm, medications not working Time Seen by Provider: 01/05/23 11:19 Source: patient and clarifying plant operator Mode of arrival: ambulatory Limitations: no limitations History of Present Illness HPI narrative: 37 yo [place] speaking male presenting with a diffuse itchy, red, raised and fluid filled rash that has been worsening for the last 1 week. Started on right forearm and has spread to all other extremities. It is extremely itchy and benadryl is not helping. No oral or facial involvement. No SOB. He states he has been staying at an outside camp but denies any known poison ghassan or poison oak contact. No known tick bites. No fevers. MD complaint: rash Onset (ago): week(s) (1) Location: generalized Severity: moderate Quality: pruritic Pain Consistency: constant Relieving factors: none Exacerbating factors: none Context: recent camping Associated symptoms: denies other symptoms Treatments prior to arrival: Benadryl Related Data Home Medications Medication Instructions Recorded Confirmed clonidine HCl 0.2 mg tablet 0.4 mg PO TID PRN Anxiety 12/21/22 12/21/22 nabumetone 750 mg tablet 750 mg PO BID 12/21/22 12/21/22 olanzapine 15 mg tablet 30 mg PO BEDTIME 12/21/22 12/21/22 trazodone 100 mg tablet 200 mg PO BEDTIME PRN Sleep 12/21/22 12/21/22 Previous Rx's Medication Instructions Recorded diphenhydramine HCl 25 mg capsule 50 mg (2 x 25 mg) PO TID PRN 01/02/23 (Benadryl) allergic reaction #30 caps prednisone 10 mg tablets in a dose 10 mg PO DIRECTED #48 ea 01/02/23 pack hydrocortisone 1 % topical cream 1 appl topical TID PRN itching 01/03/23 #28.4 grams nirmatrelvir 300 mg (150 mg See Rx Instructions PO .COMPLEX 01/03/23 x2)-ritonavir 100 mg tablet,dose #30 ea pack (Paxlovid) hydroxyzine HCl 50 mg tablet 50 mg PO Q8H PRN itching #30 tabs 01/05/23 methylprednisolone 4 mg tablets in 4 mg PO DAILY #21 ea 01/05/23 a dose pack (Medrol (Blaise)) triamcinolone acetonide 0.5 % 1 appl topical BID #15 grams 01/05/23 topical ointment Allergies Allergy/AdvReac Type Severity Reaction Status Date / Time No Known Allergies Allergy Verified 01/05/23 11:23 Review of Systems Review of Systems: Yes all other systems are reviewed and are negative [facility] Social History Social History Alcohol intake: unknown Advance Directives: No Physical Exam Vital Signs: Vital Signs: Last Vital Signs Temp 97.0 F 01/05/23 11:15 Pulse 92 01/05/23 11:15 Resp 18 01/05/23 11:15 BP 132/91 H 01/05/23 11:15 Pulse Ox 95 01/05/23 11:15 O2 Del Method Room Air 01/05/23 11:15 BMI result Body Mass Index 26.6 Appearance: Alert. Oriented X3. No acute distress. HEENT: normal inspection CVS: Normal heart rate and rhythm. Pulses normal. Respiratory: No respiratory distress. Lungs CTAB Skin: Skin warm and dry. There is a diffuse erythematous, raised maclopapular rash with various areas of fluid filled vesciles located on all 4 extremities, RUE is most severe Extremities: no joint swelling, no LE edema Neuro: Oriented X 3. No motor deficit. No sensory deficit. Medications Administered Discontinued Medications Generic Name Dose Route Start Last Admin Trade Name Freq PRN Reason Stop Dose Admin Hydroxyzine HCl 50 mg 01/05/23 11:30 01/05/23 11:48 Hydroxyzine Hcl 50 Mg Tablet PO 01/05/23 11:31 50 mg ONCE ONE Administration Methylprednisolone Sodium Succinate 60 mg 01/05/23 11:30 01/05/23 11:48 Methylprednisolone Sod Succ 125 Mg/2 Ml Vial IM 01/05/23 11:31 60 mg ONCE ONE Administration Medical Decision Making Medical Decision Making MDM Narrative: 37 yo male presenting with a diffuse erythematous, fluid filled vesicluar rash on all 4 extremities. exam is c/w posion ghassan dermatitis. will start steroids. he does not want to take benadryl for itching anymore and wants to try something else, will try atarax. staffing administrator used to discuss the importance of steroid taper and compliance to ensure resolution. Stable for d/c home with medrol dose pack and symptomatic care Differential Diagnosis Differential Diagnoses: The differential diagnosis associated with the presentation includes poison ghassan, poison oak, contact dermatitis, allergic dermatitis, eczema External Record Review External record reviewed: Prior outpatient labs Prescription Management I considered prescription management with: Other (steroids, atarax) Critical Care Time Critical Care Time Critical Care Time: No Discharge Plan Discharge Clinical Impression: Rash Patient Disposition: Home, Self-Care Instructions: Acute Rash (ED) Additional Instructions: Take the prescribed steroids as directed, complete the entire course and do not miss any doses Recommend over the counter topical benadryl and oatmeal baths Follow up with your doctor If you develop new or worsening symptoms call 911 or come back to the ER for further evaluation. [place] los esteroides recetados seg?n las indicaciones, complete todo el tratamiento y no omita ninguna dosis. Recomendar ba?os t?picos de tere y benadryl de venta christen. Nickolas un seguimiento con huffman m?dico Si desarrolla s?ntomas nuevos o que empeoran, llame al 911 o regrese a la francis de emergencias para ming evaluaci?n adicional. Prescriptions: New methylprednisolone [Medrol (Blaise)] 4 mg tablets,dose pack 4 mg PO DAILY Qty: 21 0RF hydroxyzine HCl 50 mg tablet 50 mg PO Q8H PRN (Reason: itching) Qty: 30 0RF triamcinolone acetonide 0.5 % ointment 1 appl topical BID Qty: 15 1RF No Action nabumetone 750 mg tablet 750 mg PO BID clonidine HCl 0.2 mg tablet 0.4 mg PO TID PRN (Reason: Anxiety) Rx Instructions: Take 2 tablets PO BID PRN trazodone 100 mg tablet 200 mg PO BEDTIME PRN (Reason: Sleep) olanzapine 15 mg tablet 30 mg PO BEDTIME prednisone 10 mg tablets,dose pack 10 mg PO DIRECTED Qty: 48 0RF Rx Instructions: see taper instructions diphenhydramine HCl [Benadryl] 25 mg capsule 50 mg PO TID PRN (Reason: allergic reaction) Qty: 30 0RF hydrocortisone 1 % cream 1 appl topical TID PRN (Reason: itching) Qty: 28.4 0RF Paxlovid 300 mg (150 mg x 2)-100 mg tablets,dose pack See Rx Instructions .ROUTE .COMPLEX Qty: 30 0RF Rx Instructions: take TWO 150 mg tablets of nirmatrelvir with ONE 100 mg tablet of ritonavir twice daily for 5 days Interventions: ED Discharge Assessment Last Done: 01/05/23 11:46 Discharge Date/Time: 01/05/23 11:55
[2023-01-05] MEDS: hydrOXYzine HCL 50 MG TABLET PO (11:48)
[2023-01-05] MEDS: methylPREDNISolone Sod Succ 125 MG/2 ML VIAL 60 MG IM (11:48)
== END 2023-01-05 11:55 | disposition home or self-care (01) ==
PROVIDERS: Emergency Provider Emergency Medicine
DX: L50.0 Allergic urticaria (principal); Z79.899 Other long term (current) drug therapy
CPT/HCPCS: 96372; 99283; 99284; J2930